=== PATIENT | male | born 1965 | race Two or more races ===

== ENCOUNTER → 2018-08-13 | Outpatient (CLI) | payer OTHER ==
[2018-08-13 17:10] LABS: DIRECT BILIRUBIN 0.3 mg/dL (0.0-0.2); TOTAL BILIRUBIN 1.6 mg/dL (0.2-1.0); TOTAL PROTEIN 7.1 g/dL (6.4-8.2)
[2018-08-15 11:06] LABS: CERULOPLASMIN 15.4 mg/dL (16.0-31.0)
== END | disposition home or self-care (01) ==
LOC: LAB 16:12
PROVIDERS: ATTEND Internal Medicine Gastroenterology
DX: R74.8 Abnormal levels of other serum enzymes (principal)
CPT/HCPCS: 36415; 80076; 82103; 82390; 83036